=== PATIENT | female | born 2000 ===

== ENCOUNTER 2021-04-22 14:07 | Outpatient (CLI) | payer OTHER | END 2021-04-22 15:07 | disposition home or self-care (01) | LOC: PRENATAL 14:07 | PROVIDERS: ATTEND Obstetrics & Gynecology Maternal & Fetal Medicine | DX: O26.842 Uterine size-date discrepancy, second trimester (principal); O36.80X1 Pregnancy with inconclusive fetal viability, fetus 1; O26.852 Spotting complicating pregnancy, second trimester; O09.212 Supervision of pregnancy with history of pre-term labor, second trimester; Z36.89 Encounter for other specified antenatal screening; Z3A.15 15 weeks gestation of pregnancy ==

== ENCOUNTER 2021-05-21 14:30 | Outpatient (CLI) | payer OTHER | END 2021-05-21 15:30 | disposition home or self-care (01) | LOC: PRENATAL 14:30 | PROVIDERS: ATTEND Obstetrics & Gynecology Maternal & Fetal Medicine | DX: O35.0XX1 Maternal care for (suspected) central nervous system malformation in fetus, fetus 1 (principal); O35.3XX1 Maternal care for (suspected) damage to fetus from viral disease in mother, fetus 1; O98.512 Other viral diseases complicating pregnancy, second trimester; Z36.89 Encounter for other specified antenatal screening; Z3A.19 19 weeks gestation of pregnancy ==

== ENCOUNTER 2021-06-14 03:52 | Outpatient (CLI) | payer OTHER | END 2021-06-14 14:09 | disposition home or self-care (01) | LOC: OBS/DEL 03:52 | PROVIDERS: ATTEND Obstetrics & Gynecology | DX: O60.02 Preterm labor without delivery, second trimester (principal); Z3A.22 22 weeks gestation of pregnancy ==

== ENCOUNTER 2021-06-21 10:05 | Outpatient (CLI) | payer OTHER | END 2021-06-21 11:00 | disposition home or self-care (01) | LOC: PRENATAL 10:05 | PROVIDERS: ATTEND Obstetrics & Gynecology Maternal & Fetal Medicine | DX: O26.842 Uterine size-date discrepancy, second trimester (principal); O26.852 Spotting complicating pregnancy, second trimester; Z36.89 Encounter for other specified antenatal screening; Z3A.24 24 weeks gestation of pregnancy ==

== ENCOUNTER 2021-09-13 13:26 | Outpatient (CLI) | payer OTHER | END 2021-09-13 14:15 | disposition home or self-care (01) | LOC: PRENATAL 13:26 | PROVIDERS: ATTEND Obstetrics & Gynecology Maternal & Fetal Medicine | DX: O40.3XX0 Polyhydramnios, third trimester, not applicable or unspecified (principal); O26.849 Uterine size-date discrepancy, unspecified trimester; O40.1XX0 Polyhydramnios, first trimester, not applicable or unspecified; O35.0XX0 Maternal care for (suspected) central nervous system malformation in fetus, not applicable or unspecified ==

== ENCOUNTER 2021-09-26 06:16 | Inpatient (IN) | payer OTHER ==
[~2021-09-26] VITALS: Ht 160 cm; Wt 86.6 kg
[2021-09-26] MEDS ORDERED: PRENATAL TABLE1 EAC1 PO (07:43)
[2021-09-26] MEDS ORDERED: FAMOTIDINE20 MG (10:51)
== END 2021-09-28 15:43 | disposition home or self-care (01) | DRG 807 ==
LOC: LDR 06:16 → OB/GYN 06:16
PROVIDERS: ADMIT Obstetrics & Gynecology; ATTEND Obstetrics & Gynecology
PROC: 10E0XZZ Delivery of Products of Conception, External Approach (ICD-10-PCS; principal; 2021-09-26)
PROC: 0W8NXZZ Division of Female Perineum, External Approach (ICD-10-PCS; 2021-09-26)
PROC: 4A1HXCZ Monitoring of Products of Conception, Cardiac Rate, External Approach (ICD-10-PCS; 2021-09-26)
DX: O80 Encounter for full-term uncomplicated delivery (principal); Z37.0 Single live birth; Z3A.37 37 weeks gestation of pregnancy; Z20.822 Contact with and (suspected) exposure to COVID-19